=== PATIENT | male | born 1990 | race Caucasian/White ===

== ENCOUNTER 2024-10-01 14:39 | Emergency (ER) | payer OTHER ==
[~2024-10-01] VITALS: Ht 172.7 cm; Wt 70.3 kg
[2024-10-01 17:13] LABS: APPEARANCE,URINE CLEAR (CLEAR); BLOOD, URINE NEGATIVE Ery/uL (NEGATIVE); LEUKOCYTE ESTERASE ,URINE NEGATIVE (NEGATIVE); NITRITE, URINE NEGATIVE (NEGATIVE); UGLUCOSE NEGATIVE (NEGATIVE)
[2024-10-01 18:14] VITALS: BP 139/79; TEMP 98.3; O2SAT 99
[2024-10-03 01:07] LABS: CHLAMYDIA TRACHOMATIS NAA Negative (Negative); NEISSERIA GONORRHOEAE NAA Negative (Negative)
== END 2024-10-01 18:14 | disposition home or self-care (01) ==
LOC: ER 14:43
DX: N43.3 Hydrocele, unspecified (principal); N43.41 Spermatocele of epididymis, single; Z60.2 Problems related to living alone
CPT/HCPCS: 76870-TC; 87491; 87591